=== PATIENT | female | born 1980 | race Caucasian/White ===

== ENCOUNTER 2018-05-24 21:11 | Emergency (ER) | payer BC, MEDICAID ==
[2018-05-24] MEDS ORDERED: Morphine Sulfate 2 mg/mL 1mL Syr IM STA (21:33)
[2018-05-24] MEDS ORDERED: Morphine Sulfate 2 mg/mL 1mL Syr ONE (21:53)
--- NOTE | 2018-05-25 00:19 | ED Physician Chart ---
ED Chief Complaint/HPI - Patient Information Date Seen:: 05/24/18 Time Seen:: 21:15 Chief Complaint:: Back Pain History of Present Illness:: onset x 3 days of intermittent, sharp, MS type LBP after a twisting type injury ; pt denies trauma, LOC, ALOC, AMS, H/As, S/T, neck pain, paresthesias weakness , dizziness, vertigo, C/P, SOB, Abd. Pain, flank pain, pelvic pain, A/N/V/D/C, fever, chills, or urinary s/s; LNMP: 05/23/18; pt denies ; last tetanus shot: < 5 years; UTD; pt denies visual or gait changes Allergies:: Allergies Allergy/AdvReac Type Severity Reaction Status Date / Time No Known Allergies Allergy Verified 05/24/18 21:34 Vitals:: Vital Signs - 8 hr 05/24/18 05/24/18 05/24/18 21:15 22:31 22:33 Temp 98.3 F 98.1 F 98.1 F HR 89 78 78 RR 18 18 18 BP 132/72 121/80 121/80 O2 Sat % 100 98 98 Historian:: Patient, Family Member Review:: Nurse's Note Reviewed ED Review of Systems - Review of Systems General/Constitutional: No fever, No chills, No weight loss, No weakness, No diaphoresis, No edema, No loss of appetite Skin: No skin lesions, No rash, No bruising Head: No headache, No light-headedness Eyes: No loss of vision, No pain, No diplopia ENT: No earache, No nasal drainage, No sore throat, No tinnitus Neck: No neck pain, No swelling, No thyromegaly, No stiffness, No mass noted Cardio Vascular: No chest pain, No palpitations, No PND, No orthopnea, No edema Pulmonary: No SOB, No cough, No sputum, No wheezing GI: No nausea, No vomiting, No diarrhea, No pain, No melena, No hematochezia, No constipation, No hematemesis G/U: No dysuria, No frequency, No hematuria Stitch Marker: No vaginal discharge, No abnormal vaginal bleed, No contraction Musculoskeletal: No bone or joint pain, Back pain, Muscle pain Endocrine: No polyuria, No polydipsia Psychiatric: No prior psych history, No depression, No anxiety, No suicidal ideation, No homicidal ideation, No auditory hallucination, No visual hallucination Hematopoietic: No bruising, No lymphadenopathy Allergic/Immuno: No urticaria, No angioedema Neurological: No syncope, No focal symptoms, No weakness, No paresthesia, No headache, No seizure, No dizziness, No confusion, No vertigo ED Past Medical History - Past Medical History Obtainable: Yes Past Medical History: No significant medical hx Family History: None Social History: Non Smoker, No Alcohol, No Drug Use, Surgical History: None Psychiatricy History: None Medication: Reviewed Family Medical History - Family Member Mother History Unknown: Yes ED Physical Exam - Physical Examination General/Constitutional: Awake, Well-developed, well-nourished, Alert, No distress, GCS 15, Non-toxic appearing, Ambulatory Head: Atraumatic Eyes: Lids, conjuctiva normal, PERRL, EOMI Skin: Nl inspection, No rash, No skin lesions, No ecchymosis, Well hydrated, No lymphadenopathy ENMT: External ears, nose nl, TM canals nl, Nasal exam nl, Lips, teeth, gums nl , Oropharynx nl, Tonsils nl Neck: Nontender, Full ROM w/o pain, No JVD, No nuchal rigidity, No bruit, No mass, No stridor Other Neck comments:: supple; no meningeal signs; no cervical tenderness; no bruits Respiratory: Nl effort/Exclusion, Clear to Auscultation, No Wheeze/Rhonchi/Rales Cardio Vascular: RRR, No murmur, gallop, rubs, NL S1 S2, Carotid/Femoral/Distal pulses equal bilaterally GI: No tenderness/rebounding/guarding, No organomegaly, No hernia, Normal BS's, Nondistended, No mass/bruits, No McBurney tenderness, Rectum exam nl Other GI comments:: no pulsatile masses : No CVA tenderness Extremities: No tenderness or effusion, Full ROM, normal strength in all extremities, No edema, Normal digits & nails Neuro/Psych: Alert/oriented, DTR's symmetric, Normal sensory exam, Normal motor strength, Judgement/insight normal, Mood normal, Normal gait, No focal deficits Misc: Normal back, No paraspinal tenderness Other Misc comments:: + L-S bilateral paravertebral soft tissue tenderness with no loss of ROMs; DTRs : 2+ bilaterally; Gait: WNL; good motor, tendon, and sensory functions; good NV functions ED Labs/Radiology/EKG Results - Lab Results Results: Laboratory Tests 05/24/18 21:21 Urine Test NEGATIVE Comments:: Reviewed - Radiology Results Comments:: deferred by pt ED Septic Shock - . Is Septic Shock (SBP<90, OR Lactate>4 mmol\L) present?: No - <6hrs of presentation: Vital Signs: Vital Signs - 8 hr 05/24/18 05/24/18 05/24/18 21:15 22:31 22:33 Temp 98.3 F 98.1 F 98.1 F HR 89 78 78 RR 18 18 18 BP 132/72 121/80 121/80 O2 Sat % 100 98 98 ED Reassessment (Disposition) - Reassessment Reassessment:: pt is asymptomatic upon discharge Reassessment Condition:: Improved - Diagnosis Diagnosis:: Back Pain; Low Back Pain; L-S Strain; L-S Sprains and Strains; Back Injury; Sprains and Strains - Aftercare/Follow up Instructions Aftercare/Follow-Up Instructions:: Counseled pt regarding lab results/diagnosis & need follow up, Refer to Discharge Instructions, Counseled pt & family regarding lab results/diagnosis & need follow up - Patient Disposition Discharge/Transfer:: Home Condition at Disposition:: Stable, Improved (RTER prn if existing s/s reoccur and/or get worse and/or any other new s/s occur; ACIs given for all above Dx; Refer to Spinal Specialist/Orthopedist/Health/Safety Job Titles DELANO; F/U with PMD in one day or prn; RTER prn if concerned)
== END 2018-05-24 22:45 | disposition home or self-care (01) ==
LOC: ER 21:11
DX: S33.9XXA Sprain of unspecified parts of lumbar spine and pelvis, initial encounter (principal); S39.012A Strain of muscle, fascia and tendon of lower back, initial encounter; X50.1XXA Overexertion from prolonged static or awkward postures, initial encounter; Y93.89 Activity, other specified; Y92.89 Other specified places as the place of occurrence of the external cause; Y99.8 Other external cause status
CPT/HCPCS: 99283; 96372; 81025; J2270; Z7502